=== PATIENT | male | born 1960 | race Caucasian/White ===

== ENCOUNTER 2016-10-07 09:10 | Emergency (ER) | payer OTHER ==
[2016-10-07 09:22] VITALS: BP 143/85; PULSE 85; TEMP 98.9; BMI 31.1
--- NOTE | 2016-10-07 09:35 | PDOC ---
History of Present Illness - General Chief Complaint: Laceration Stated Complaint: LACERATION Time Seen by Provider: 10/07/16 09:27 History Source: Patient Exam Limitations: No Limitations - History of Present Illness Initial Comments: CHIEF COMPLAINT: 56 y/o afebrile male with PMH HTN and HLD c/o laceration to right forearm. HISTORY OF PRESENT ILLNESS: The patient was working when he tripped and scraped his right forearm along a metal stud sticking out of the wall. He denies numbness/tingling in extremity, decreased ROM. The patient is not UTD on tetanus. Vital signs on arrival are within normal limits. REVIEW OF SYSTEMS: GENERAL/CONSTITUTIONAL: No fever/chills. No weakness. No weight change. HEAD, EYES, EARS, NOSE AND THROAT: No change in vision. No ear pain or discharge. No sore throat. MUSCULOSKELETAL: No joint or muscle swelling or pain. No neck or back pain. SKIN: +laceration to right forearm. NEUROLOGIC: No headache, vertigo, loss of consciousness, or loss of sensation. PHYSICAL EXAM: GENERAL: The patient is awake, alert, and fully oriented, in no acute distress. HEAD: Normal with no signs of trauma. EXTREMITIES: Normal range of motion, no edema. Full flexion, extension, pronation and supination of right forearm. Sensory intact in right fingers. Full ROM of right wrist and fingers. NEUROLOGICAL: Normal speech, normal gait. CN II-XII grossly intact. Motor and sensory intact in affected extremity. SKIN: 4cm irregular laceration to distal 3rd of right dorsal forearm. Margins well approximated. Minimal active bleeding. Past History - Past Medical History Allergies/Adverse Reactions: Allergies Allergy/AdvReac Type Severity Reaction Status Date / Time No Known Allergies Allergy Verified 10/07/16 09:22 HTN: Yes Hypercholesterolemia: Yes - Surgical History Appendectomy: Yes - Psycho/Social/Smoking Cessation Hx Anxiety: No Suicidal Ideation: No Smoking History: Current some day smoker Have you smoked in the past 12 months: Yes Number of Cigarettes Smoked Daily: 1 Information on smoking cessation initiated: No Hx Alcohol Use: No Drug/Substance Use Hx: No Substance Use Type: Alcohol *Physical Exam - Vital Signs Last Vital Signs Temp Pulse Resp BP Pulse Ox 98.9 F 85 20 143/85 98 10/07/16 09:19 10/07/16 09:19 10/07/16 09:19 10/07/16 09:19 10/07/16 09:19 Procedures - Laceration/Wound Repair Right Dorsal Arm Wound Length: 2.6 to 5.0 cm Wound Explored: clean Wound's Depth, Shape: into muscle, irregular Irrigated w/ Saline: Yes Betadine Prep: Yes Anesthesia: 1% Lidocaine w/ Epi Amount of Anesthetic (ccs): 6 Wound Debrided: minimal Wound Repaired With: Sutures Suture Size/Type: 4:0 Number of Sutures: 8 Sterile Dressing Applied: Yes Progress: Pt tolerated procedure well Medical Decision Making - Medical Decision Making 56 y/o male with right forearm laceration. He is not UTD on tetanus. Will give tetanus and do lac repair. The patient tolerated the lac repair well. Covered it with non adherent dressing and ARIANA bandage. Instructed him to keep dry for 24 hours then covered. Instructed him to return to the ER or his PCP within 8-10 days for suture removal. The patient verbalizes understanding of all instructions, has no further questions and is awaiting discharge. *DC/Admit/Observation/Transfer Diagnosis at time of Disposition: Laceration - Discharge Dispostion Disposition: HOME Condition at time of disposition: Improved - Patient Instructions Printed Discharge Instructions: DI for Laceration Repair Additional Instructions: Discharge Instructions: -Keep wound dry for 24 hours; after that gently wash with soap and water -You were give a tetanus shot today; you are now UTD for 10 years -Please return to the ER or your regular doctor's office in 8-10 days to have stitches taken out -Return to the ER with any worsening or concerning symptoms. - Post Discharge Activity Work/School Note: Back to Work
[2016-10-07] MEDS ORDERED: DIPHTH,PERTUSS(ACELL),TET 0.5 ML DISP.SYRIN IM ONE (10:11)
== END 2016-10-07 10:30 | disposition home or self-care (01) ==
LOC: JERFT 09:10
PROC: 3E0234Z Introduction of Serum, Toxoid and Vaccine into Muscle, Percutaneous Approach (ICD-10-PCS; principal; 2016-10-07)
PROC: 0HQDXZZ Repair Right Lower Arm Skin, External Approach (ICD-10-PCS; 2016-10-07)
DX: S51.811A Laceration without foreign body of right forearm, initial encounter (principal); W26.8XXA Contact with other sharp object(s), not elsewhere classified, initial encounter; Y93.H3 Activity, building and construction; Y92.69 Other specified industrial and construction area as the place of occurrence of the external cause; Y99.0 Civilian activity done for income or pay
CPT/HCPCS: 90715; 99281-25